=== PATIENT | male | born 1955 | race Caucasian/White ===

== ENCOUNTER 2019-04-13 07:32 | Day surgery (SDC) | payer OTHER ==
[~2019-04-13 07:32] MED LIST: Bupivacaine 0.5% 50 ML MDV ONE; Lidocaine 1% with EPINEPHrine 1:100,000 50 ML MDV ONE
[2019-04-13] MEDS ORDERED: Dextrose 5%-Lactated Ringers 1,000 ML IV SCH (08:20)
[2019-04-13] MEDS ORDERED: ceFAZolin 2 GM in Premix Bag 1 BAG IV ONE (08:30)
[2019-04-13] MEDS ORDERED: Propofol 200 MG/20 ML SDV ONE ×3 (09:54→11:23)
[2019-04-13] MEDS ORDERED: fentaNYL 100 MCG/2 ML SDV ONE (10:05)
[2019-04-13] MEDS ORDERED: Midazolam 1 MG/ML 2 ML SDV ONE (10:05)
[2019-04-13] MEDS ORDERED: Glycopyrrolate 0.2 MG/ML 5 ML MDV ONE (11:02)
[2019-04-13] MEDS ORDERED: Acetaminophen/HYDROcodone 325-5 MG Tab PO PRN (13:17)
--- NOTE | 2019-04-13 16:59 | OR ---
DATE OF PROCEDURE: 04/13/2019 PREOPERATIVE DIAGNOSIS: Reducible right inguinal hernia. POSTOPERATIVE DIAGNOSIS: Reducible indirect right inguinal hernia. PROCEDURE: Repair of reducible indirect right inguinal hernia with a large PerFix mesh plug and patch. SURGEON: Jason Mabry MD. ANESTHESIA: IV anesthesia with monitored anesthesia care. INDICATION: This 63-year-old white male has a reducible right inguinal hernia. He has a remote history of a left inguinal hernia, previously repaired. The right inguinal hernia is reducible. He denies predisposing factors for hernia formation. I counseled him for repair of this including risks and alternatives with the plan for a mesh plug and patch , and he gave his informed consent to proceed. DESCRIPTION OF PROCEDURE: After adequate IV anesthesia was obtained, the patient's lower abdomen, groin, and genitalia were prepped and draped in the usual sterile fashion. Time-out was held. Lidocaine 1% with epinephrine in a 50:50 mix with 0.5% Marcaine was infiltrated about the right groin. A right groin incision was made 2 cm superior and medial to the inguinal ligament. This was carried deep using Bovie cautery and bluntly to the external oblique. The external oblique was opened parallel to the course of its fibers from the internal to external ring. The spermatic cord was mobilized and a Kelsey drain placed about it. The cremasteric fibers were longitudinally to reveal an indirect hernia sac. The ilioinguinal nerve was divided. The sac was dissected free and reduced back into the abdominal cavity. A large PerFix mesh plug manufactured by [employer] was obtained. The plug was placed down underneath the fascia through the defect and anchored to the underside of the fascia with horizontal mattress stitches of 2-0 Vicryl. The onlay patch was obtained. It was cut to appropriate size, placed over the inguinal floor, and anchored to itself around the spermatic cord with a horizontal mattress stitch of 2-0 Vicryl. The spermatic cord was returned to the inguinal canal. The external oblique was closed over the spermatic cord and mesh with a running stitch of 2-0 Vicryl. Interrupted 2-0 Vicryl stitches were placed to approximate Maite's fascia. 4-0 Vicryl using a subcuticular stitch was placed to approximate the skin. Dermabond was applied. The patient tolerated the procedure well and was brought to the recovery room in good condition. Jason Mabry MD /[id number] MTDD
== END 2019-04-13 14:36 | disposition home or self-care (01) ==
LOC: JP.SDS 07:32
PROVIDERS: ATTEND Surgery
DX: K40.90 Unilateral inguinal hernia, without obstruction or gangrene, not specified as recurrent (principal); Z98.890 Other specified postprocedural states
CPT/HCPCS: 49505; A9270; C1781; J0690; J2250; J2704; J3010; J3490; J7042

== ENCOUNTER 2024-04-24 15:03 | Inpatient (IN) | payer OTHER, MEDICARE ==
[~2024-04-24 15:03] MED LIST changes: -Bupivacaine 0.5% 50 ML MDV ONE; +Iopamidol 612 MG/ML 100 ML Bottle IV PRN; -Lidocaine 1% with EPINEPHrine 1:100,000 50 ML MDV ONE; +Sodium Chloride 0.9% 100 ML IV SCH
[2024-04-24] MEDS ORDERED: Lactated Ringers 1,000 ML IV SCH (16:15)
[2024-04-24 16:32] LABS: BASOPHILS PERCENT AUTO 0.1 % (0.1-1.3); EOSINOPHILS PERCENT AUTO 0.1 % (0.0-5.4); HEMATOCRIT 39.8 % (38.4-49.7); HEMOGLOBIN 14.1 g/dL (12.9-16.9); IMMATURE GRAN ABSOLUTE AUTO 0.11 K/uL (0.00-0.23); IMMATURE GRAN PERCENT AUTO 0.6 % (0.0-0.7); LYMPHOCYTES ABSOLUTE AUTO 0.86 K/uL (0.8-3.3); LYMPHOCYTES PERCENT AUTO 4.9 % (11.4-47.7); MEAN CORPUSCULAR HEMOGLOBIN 28.8 pg (31.6-35.5); MEAN CORPUSCULAR HGB CONC 35.4 g/dL (31.6-35.5); MEAN CORPUSCULAR VOLUME 81.4 fL (81.4-99.0); MONOCYTES ABSOLUTE AUTO 0.79 K/uL (0.20-0.90); MONOCYTES PERCENT AUTO 4.5 % (3.3-12.6); NEUTROPHILS ABSOLUTE AUTO 15.81 K/uL (1.0-7.6); NEUTROPHILS PERCENT AUTO 89.8 % (40.0-78.1); PLATELET COUNT,PLT 229 K/uL (130-375); RED BLOOD CELL COUNT 4.89 M/uL (4.14-5.76); WHITE BLOOD CELL COUNT,WBC 17.6 K/uL (3.2-11.0)
[2024-04-24 16:33] LABS: BASOPHILS ABSOLUTE AUTO 0.02 K/uL (0.00-0.10); EOSINOPHILS ABSOLUTE AUTO 0.01 K/uL (0.00-0.40)
[2024-04-24 16:54] LABS: A/G RATIO 0.9 (1.2-2.2); ALANINE AMINOTRANSFERASE,ALT 19 U/L (12-78); ALBUMIN 3.4 g/dL (3.4-5.0); ALKALINE PHOSPHATASE 83 U/L (46-116); ASPARTATE AMNIOTRANSFERASE,AST 12 U/L (15-37); BILIRUBIN TOTAL 3.4 mg/dL (0.2-1.0); BLOOD UREA NITROGEN,BUN 18 mg/dL (7-18); CALCIUM 8.7 mg/dL (8.5-10.1); CARBON DIOXIDE,CO2 25 mmol/L (21-32); CHLORIDE,CL 98 mmol/L (100-108); CREATININE 1.3 mg/dL (0.8-1.3); EST CRCL DRUG DOSING (CG) 58.86 mL/min; ESTIMATED GFR 59 mL/min (>60); GLUCOSE RANDOM 122 mg/dL (74-106); POTASSIUM,K 3.9 mmol/L (3.6-5.2); PROTEIN TOTAL,TP 7.2 g/dL (6.4-8.2); SODIUM,NA 133 mmol/L (140-148)
[2024-04-24 16:55] LABS: ANION GAP 13.9 mmol/L (5.0-14.0)
[2024-04-24] MEDS: Sodium Chloride 0.9% 10 ML Syringe FLUSH PRN (17:16)
[2024-04-24] MEDS: Iopamidol 612 MG/ML 100 ML Bottle IV PRN (17:16)
[2024-04-24] MEDS: Sodium Chloride 0.9% 100 ML IV SCH (17:16)
[2024-04-24] MEDS: Piperacillin/Tazobactam 4.5 GM in Sodium Chloride 0.9% 100 ML IV ONE (17:33)
[2024-04-24] MEDS ORDERED: HYDROmorphone 0.5 MG/0.5 ML Syringe IVPUSH PRN (17:57)
[2024-04-24] MEDS ORDERED: Sodium Chloride 0.9% 10 ML Syringe FLUSH PRN (17:57)
[2024-04-24] MEDS ORDERED: Ondansetron 4 MG/2 ML SDV IV PRN (17:57)
[2024-04-24] MEDS ORDERED: Acetaminophen 325 MG Tab PO PRN (17:57)
[2024-04-24] MEDS ORDERED: Naloxone 0.4 MG/ML SDV IVPUSH PRN (17:57)
[2024-04-24] MEDS: Pantoprazole 40 MG Vial IVPUSH SCH (18:39)
[2024-04-24] MEDS: Enoxaparin 40 MG/0.4 ML Syringe SUBCUT SCH (18:39)
[2024-04-24] MEDS: fentaNYL 100 MCG/2 ML SDV IVPUSH ONE (18:41)
[2024-04-24] MEDS: Ondansetron 4 MG/2 ML SDV IVPUSH ONE (18:41)
[2024-04-24] MEDS: oxyCODONE 5 MG Tab PO PRN (19:18)
[2024-04-24] MEDS: Aluminum Hydroxide/Magnesium Hydroxide/Simethicone Susp 30 ML Cup PO PRN (19:18)
[2024-04-24] MEDS ORDERED: Piperacillin/Tazobactam 4.5 GM in Sodium Chloride 0.9% 100 ML IV SCH (22:00)
[2024-04-24] MEDS: Piperacillin/Tazobactam/Dext 4.5 GM in Premix Bag 1 BAG IV SCH (22:07)
[2024-04-25] MEDS: Sodium Chloride 0.9% 1,000 ML IV SCH ×2 (02:05→16:55)
[2024-04-25 05:02] LABS: HEMATOCRIT 37.1 % (38.4-49.7); HEMOGLOBIN 13.1 g/dL (12.9-16.9); MEAN CORPUSCULAR HEMOGLOBIN 28.8 pg (31.6-35.5); MEAN CORPUSCULAR HGB CONC 35.3 g/dL (31.6-35.5); MEAN CORPUSCULAR VOLUME 81.5 fL (81.4-99.0); RED BLOOD CELL COUNT 4.55 M/uL (4.14-5.76); WHITE BLOOD CELL COUNT,WBC 14.5 K/uL (3.2-11.0)
[2024-04-25 05:15] LABS: CALCIUM 7.9 mg/dL (8.5-10.1); CREATININE 1.2 mg/dL (0.8-1.3); EST CRCL DRUG DOSING (CG) 63.77 mL/min; POTASSIUM,K 3.7 mmol/L (3.6-5.2)
[2024-04-25 05:21] LABS: ANION GAP 14.7 mmol/L (5.0-14.0)
[2024-04-26 06:12] LABS: HEMATOCRIT 37.8 % (38.4-49.7); HEMOGLOBIN 13.1 g/dL (12.9-16.9); MEAN CORPUSCULAR HEMOGLOBIN 28.4 pg (31.6-35.5); MEAN CORPUSCULAR HGB CONC 34.7 g/dL (31.6-35.5); RED BLOOD CELL COUNT 4.61 M/uL (4.14-5.76); WHITE BLOOD CELL COUNT,WBC 11.5 K/uL (3.2-11.0)
[2024-04-26 06:31] LABS: CALCIUM 8.4 mg/dL (8.5-10.1); CREATININE 1.1 mg/dL (0.8-1.3); EST CRCL DRUG DOSING (CG) 69.57 mL/min; POTASSIUM,K 3.7 mmol/L (3.6-5.2)
[2024-04-26 06:32] LABS: ANION GAP 18.7 mmol/L (5.0-14.0)
[2024-04-27 05:56] LABS: HEMATOCRIT 33.7 % (38.4-49.7); HEMOGLOBIN 11.6 g/dL (12.9-16.9); MEAN CORPUSCULAR HEMOGLOBIN 28.3 pg (31.6-35.5); MEAN CORPUSCULAR HGB CONC 34.4 g/dL (31.6-35.5); MEAN CORPUSCULAR VOLUME 82.2 fL (81.4-99.0); RED BLOOD CELL COUNT 4.1 M/uL (4.14-5.76); WHITE BLOOD CELL COUNT,WBC 8.1 K/uL (3.2-11.0)
[2024-04-27 06:09] LABS: CALCIUM 8.1 mg/dL (8.5-10.1); EST CRCL DRUG DOSING (CG) 76.52 mL/min; POTASSIUM,K 3.4 mmol/L (3.6-5.2)
[2024-04-27 06:11] LABS: ANION GAP 14.4 mmol/L (5.0-14.0)
== END 2024-04-27 17:59 | disposition home or self-care (01) | DRG 392 ==
LOC: JP.ED 15:03 → JP.ICU 16:55
PROVIDERS: ADMIT Hospitalist; ATTEND Hospitalist
DX: K57.20 Diverticulitis of large intestine with perforation and abscess without bleeding (principal); M19.90 Unspecified osteoarthritis, unspecified site; D72.829 Elevated white blood cell count, unspecified; E80.6 Other disorders of bilirubin metabolism; Z96.653 Presence of artificial knee joint, bilateral; Z98.890 Other specified postprocedural states
CPT/HCPCS: 36415; 74177; 80048; 80053; 82247; 83605; 83735; 85025; 85027; 99285; A9270-GY; J1650; J2470; J2543; J3490; J7030; Q9967

== ENCOUNTER 2024-06-12 06:27 | Day surgery (SDC) | payer OTHER, MEDICARE ==
[2024-06-12] MEDS: Sodium Chloride 0.9% 1,000 ML IV SCH (07:12)
[2024-06-12] MEDS ORDERED: Midazolam 1 MG/ML 2 ML SDV ONE (07:17)
[2024-06-12] MEDS ORDERED: Propofol 200 MG/20 ML SDV ONE (07:17)
[2024-06-12] MEDS ORDERED: fentaNYL 50 MCG/ML SDV ONE (07:17)
== END 2024-06-12 09:14 | disposition home or self-care (01) ==
LOC: JP.SDS 06:27
PROVIDERS: ATTEND Surgery
DX: K57.30 Diverticulosis of large intestine without perforation or abscess without bleeding (principal); K21.9 Gastro-esophageal reflux disease without esophagitis
CPT/HCPCS: 45378; J2250; J2704; J3010; J7030; 00811-QZ